=== PATIENT | male | born 1935 | race Native Hawaiian/Other Pacific Islander ===

== ENCOUNTER 2017-12-25 19:17 | Emergency (ER) | payer MEDICARE ==
[2017-12-25] MEDS ORDERED: NORCO 7.5/325 PO ONE (19:40)
[2017-12-25] MEDS ORDERED: ZOFRAN ODT PO ONE (19:40)
[2017-12-25 20:08] LABS: Hematocrit 44.7 % (35.5-45.6); Hemoglobin 14.6 gm/dl (11.8-15.2); Mean Corpuscular HGB Conc 33 % (32-34); Mean Corpuscular Hemoglobin 29 pg (28-32); Mean Corpuscular Volume 88 fl (84-94); Platelet Count 161 K/mm3 (140-440); Red Blood Count 5.11 M/mm3 (3.65-5.03); Red Cell Distribution Width 14.9 % (13.2-15.2)
[2017-12-25 20:43] LABS: Basophils % (Manual) 0 % (0.0-1.8); Eosinophils % (Manual) 0 % (0.0-4.3); Monocytes % (Manual) 0 % (0.0-7.3); Total Cells Counted 100
[2017-12-25 20:44] LABS: Anisocytosis 1+; Ovalocytes Few; Platelet Estimate Consistent w Auto; Poikilocytosis Few
[2017-12-25] MEDS ORDERED: NACL 0.9% 1000 ML 1,000 ML IV ONE ×2 (21:28→23:54)
[2017-12-25 22:05] LABS: Bacteria,Urine 1+ /HPF (Negative); Bilirubin,Urine NEG (Negative); Blood,Urine MOD (Negative); Color,Urine Amber (Yellow); Mucus,Urine FEW /HPF; Nitrite,Urine NEG (Negative); Urobilinogen,Urine < 2.0 mg/dL (<2.0)
--- NOTE | 2017-12-26 00:55 | Emergency Department Report ---
- General Chief complaint: Weakness Stated complaint: PAIN AND WEAKNESS Time Seen by Provider: 12/25/17 19:36 Source: family, EMS Mode of arrival: Stretcher Limitations: Altered Mental Status - History of Present Illness Initial comments: Patient is a 82-year-old male who is presenting with generalized weakness. Patient's son states he's been feeling just generally unwell of this past week. Patient had one episode when he stood and became very dizzy. This was several days ago. Patient states he has generalized body aches and just doesn't feel well. Patient denies any cough nausea vomiting diarrhea congestion fevers chills MD Complaint: generalized weakness Onset/Timin -: Gradual, week(s) Location: generalized Severity: mild Severity scale (0 -10): 7 Consistency: constant Improves with: none Worsens with: exertion (1 standing) Associated Symptoms: myalgias (patient states he has some generalized body aches ). denies: chest pain, confusion, dark stools, diaphoresis, easy bruising, fever/chills, headaches, loss of appetite, nausea/vomiting, rash, shortness of breath, syncope - Related Data Allergies Allergy/AdvReac Type Severity Reaction Status Date / Time No Known Allergies Allergy Unverified 12/25/17 19:32 ED Review of Systems ROS: Stated complaint: PAIN AND WEAKNESS Other details as noted in HPI Comment: All other systems reviewed and negative ED Past Medical Hx - Past Medical History Hx Hypertension: Yes Hx Arthritis: Yes - Social History Smoking Status: Never Smoker ED Physical Exam - General Limitations: Altered Mental Status General appearance: alert, in no apparent distress - Head Head exam: Present: atraumatic, normocephalic - Eye Eye exam: Present: normal appearance - ENT ENT exam: Present: mucous membranes moist - Neck Neck exam: Present: normal inspection - Respiratory Respiratory exam: Present: normal lung sounds bilaterally. Absent: respiratory distress, wheezes, rales, rhonchi - Cardiovascular Cardiovascular Exam: Present: normal rhythm, tachycardia. Absent: regular rate , systolic murmur, diastolic murmur, rubs, gallop - GI/Abdominal GI/Abdominal exam: Present: soft, normal bowel sounds - Rectal Rectal exam: Present: deferred - Extremities Exam Extremities exam: Present: normal inspection - Back Exam Back exam: Present: normal inspection - Neurological Exam Neurological exam: Present: alert, oriented X3 - Psychiatric Psychiatric exam: Present: normal affect, normal mood - Skin Skin exam: Present: warm, dry, intact, normal color. Absent: rash - Level of Consciousness 1a. Level of Consciousness: alert - LOC Questions 1b. LOC Questions: answers correctly - LOC Command 1c. LOC Commands: performs tasks correctly - Best Gaze 2. Best Gaze: normal - Visual 3. Visual: no visual loss - Facial Palsy 4. Facial Palsy: normal symmetrical movement - Motor Arm 5b. Motor Arm Right: no drift 5a. Motor Arm Left: no drift - Motor Leg 6a. Motor Leg Left: no drift 6b. Motor Leg Right: no movement - Limb Ataxia 7. Limb Ataxia: absent - Sensory 8. Sensory: normal - Best Language 9. Best Language: no aphasia - Dysarthria 10. Dysarthria: normal - Extinction and Inattention 11. Extinction/Inattention: no abnormality - Scoring Total Score: 4 Stroke Severity: Minor Stroke ED Course Vital Signs 12/25/17 12/25/17 12/25/17 19:27 19:46 20:00 Temperature 97.9 F Pulse Rate 125 H 127 H 121 H Respiratory 20 32 H 23 Rate Blood Pressure 130/74 97/75 Blood Pressure 130/74 [Left] O2 Sat by Pulse 98 97 Oximetry 12/25/17 12/25/17 12/25/17 20:08 20:12 20:15 Temperature Pulse Rate 125 H 121 H Respiratory 24 29 H Rate Blood Pressure 97/75 Blood Pressure [Left] O2 Sat by Pulse 98 97 Oximetry 12/25/17 12/25/17 20:31 20:45 Temperature Pulse Rate 123 H 114 H Respiratory 28 H 26 H Rate Blood Pressure 100/63 98/57 Blood Pressure [Left] O2 Sat by Pulse 97 97 Oximetry ED Medical Decision Making - Lab Data Result diagrams: 12/25/17 19:55 12/25/17 19:55 - EKG Data -: EKG Interpreted by Me - EKG Data Interpretation: other (her EKG shows sinus tachycardia 122 with left axis deviation normal intervals inferior Q waves but no ST segment elevation or depression time of interpretation is 8 PM) - Medical Decision Making This 82-year-old male who is presenting with some weakness. Patient did show some prerenal renal function on his laboratory work. Patient was given 2 L of normal saline over pressure remained roughly 110 systolic heart rate did decrease to the 90s patient was feeling much improved and will be discharged home. Critical care attestation.: If time is entered above; I have spent that time in minutes in the direct care of this critically ill patient, excluding procedure time. ED Disposition Clinical Impression: Dehydration Disposition: DC-01 TO HOME OR SELFCARE Is pt being admited?: No Does the pt Need Aspirin: No Condition: Stable Referrals: REJI MIGUEL MD [Staff Physician] - 3-5 Days
[2017-12-26 02:41] VITALS: BP 99/57
== END 2017-12-26 03:30 | disposition home or self-care (01) ==
LOC: EDBD → ED 19:17
DX: E86.0 Dehydration (principal); I10 Essential (primary) hypertension; M19.90 Unspecified osteoarthritis, unspecified site
CPT/HCPCS: 36415; 80048; 81001; 82550; 85007; 85025; 93005; 93010; 96360; 96361; 99284; J7030; Q0162